=== PATIENT | female | born 1935 | race Caucasian/White ===

== ENCOUNTER → 2024-05-16 | Outpatient (CLI) | payer OTHER, SELFPAY ==
[2024-05-16 10:40] LABS: Vitamin D 25 Hydroxy Total 67.5 ng/mL (7.3-40.2)
== END | disposition home or self-care (01) ==
LOC: COPL 09:21
PROVIDERS: PCP Internal Medicine; Referring Provider Internal Medicine; Visit Provider Internal Medicine
DX: I11.0 Hypertensive heart disease with heart failure (principal); E55.9 Vitamin D deficiency, unspecified
CPT/HCPCS: 36415; 82306